=== PATIENT | female | born 1990 | race Two or more races ===

== ENCOUNTER 2018-04-18 12:16 | Inpatient (IN) | payer OTHER ==
[2018-04-19] MEDS: PRENATAL VITAMIN PO (08:37)
[2018-04-19 18:33] LABS: ADD MAN DIFF? NO
[2018-04-19 18:35] LABS: BASOPHILS % 0.2 % (0.0-2.0); EOSINOPHILS # 0.1 10^3/ul (0.0-0.5); EOSINOPHILS % 1.2 % (0.0-7.0); HEMATOCRIT 34.6 % (37.0-47.0); HEMOGLOBIN 11.5 g/dl (12.0-16.0); LYMPHOCYTES # 1.6 10^3/ul (0.8-2.9); LYMPHOCYTES % 15.9 % (15.0-51.0); MEAN CORPUSCULAR HEMOGLOBIN 29.6 pg (29.0-33.0); MEAN CORPUSCULAR HGB CONC 33.2 g/dl (32.0-37.0); MEAN CORPUSCULAR VOLUME 89.2 fl (82.0-101.0); MEAN PLATELET VOLUME 11.9 fl (7.4-10.4); MONOCYTE # 0.6 10^3/ul (0.3-0.9); MONOCYTES % 5.5 % (0.0-11.0); NEUTROPHIL # 7.7 10^3/ul (1.6-7.5); NEUTROPHILS % 76.8 % (39.0-77.0); PLATELET COUNT 160 10^3/UL (140-415); RED BLOOD COUNT 3.88 10^6/ul (4.20-5.40); RED CELL DISTRIBUTION WIDTH 15.5 % (11.5-14.5)
[2018-04-19 18:57] LABS: ANION GAP 13 (8-16); BLOOD UREA NITROGEN 9 mg/dl (7-20); CALCIUM 9.6 mg/dl (8.4-10.2); CARBON DIOXIDE 23 mmol/L (21-31); CHLORIDE 104 mmol/L (97-110); CREATININE 0.47 mg/dl (0.44-1.00); GLUCOSE 102 mg/dl (70-220); POTASSIUM 3.9 mmol/L (3.5-5.1); SODIUM 136 mmol/L (135-144)
[2018-04-19 19:06] LABS: B-TYPE NATRIURETIC PEPTIDE 74 PG/ML (0-125)
[2018-04-19 19:13] LABS: TROPONIN-I < 0.010 ng/ml (0.000-0.120)
[2018-04-20 01:41] LABS: TROPONIN-I < 0.010 ng/ml (0.000-0.120)
[2018-04-20] MEDS: PRENATAL VITAMIN PO (08:39)
[2018-04-20 09:06] LABS: CHOL/HDL RATIO 3.7 RATIO; HDL CHOLESTEROL 72 mg/dl (33-83); LDL CHOLESTEROL,CALCULATED 148 mg/dl; TRIGLYCERIDES 254 mg/dl (0-149)
[2018-04-20 09:06] LABS: CHOLESTEROL 271 mg/dl (100-200)
[2018-04-20 09:11] LABS: TROPONIN-I < 0.012 ng/ml (0.000-0.120)
== END 2018-04-20 20:17 | disposition home or self-care (01) | DRG 781 ==
LOC: OBT 12:16 → L-D 12:16 → OBT 15:30 → TEL 15:09
DX: O26.893 Other specified pregnancy related conditions, third trimester (principal); R06.02 Shortness of breath; R00.2 Palpitations; I95.9 Hypotension, unspecified; E78.5 Hyperlipidemia, unspecified; Z3A.35 35 weeks gestation of pregnancy
CPT/HCPCS: 76818; 80048; 80061; 83880; 84443; 84484; 85025; 93005; 93306

== ENCOUNTER 2018-04-26 19:32 | Outpatient (CLI) | payer OTHER | END 2018-04-27 00:35 | disposition home or self-care (01) | LOC: OBT 19:32 → L-D 19:34 → OBT 04-27 00:35 | DX: O26.893 Other specified pregnancy related conditions, third trimester (principal); Z3A.36 36 weeks gestation of pregnancy; R06.02 Shortness of breath | CPT/HCPCS: 93005 ==

== ENCOUNTER 2018-05-03 13:23 | Inpatient (IN) | payer OTHER ==
[2018-05-03 16:09] LABS: ADD UMIC YES; UR AMORPHOUS CRYSTAL FEW /HPF (NONE SEEN); UR ASCORBIC ACID 20 mg/dL (NEGATIVE); UR BILIRUBIN (Dip) NEGATIVE (NEGATIVE); UR BLOOD (Dip) NEGATIVE (NEGATIVE); UR CLARITY TURBID (CLEAR); UR COLOR YELLOW (YELLOW); UR GLUCOSE (Dip) NEGATIVE (NEGATIVE); UR KETONES (Dip) NEGATIVE (NEGATIVE); UR LEUKOCYTE ESTERASE (Dip) TRACE Leu/ul (NEGATIVE); UR NITRITE (Dip) NEGATIVE (NEGATIVE); UR RBC 1 /HPF (0-5); UR SPECIFIC GRAVITY (Dip) 1.018 (1.003-1.030); UR SQUAMOUS EPITHELIAL CELL MODERATE /HPF (FEW); UR TOTAL PROTEIN (Dip) NEGATIVE (NEGATIVE); UR UROBILINOGEN (Dip) NEGATIVE (NEGATIVE); UR WBC 1 /HPF (0-5)
[2018-05-03] MEDS ORDERED: NACL 0.9% 3 ML SYG IV (19:00)
[2018-05-04 01:12] LABS: TROPONIN-I < 0.012 ng/ml (0.000-0.120)
[2018-05-04 05:52] LABS: ADD MAN DIFF? NO
[2018-05-04 05:57] LABS: WHITE BLOOD COUNT 8.9 10^3/ul (4.8-10.8)
[2018-05-04 05:57] LABS: BASOPHILS % 0.2 % (0.0-2.0); EOSINOPHILS # 0.1 10^3/ul (0.0-0.5); EOSINOPHILS % 1.5 % (0.0-7.0); HEMATOCRIT 32.5 % (37.0-47.0); HEMOGLOBIN 10.5 g/dl (12.0-16.0); LYMPHOCYTES # 1.6 10^3/ul (0.8-2.9); LYMPHOCYTES % 18.1 % (15.0-51.0); MEAN CORPUSCULAR HEMOGLOBIN 29.3 pg (29.0-33.0); MEAN CORPUSCULAR HGB CONC 32.3 g/dl (32.0-37.0); MEAN CORPUSCULAR VOLUME 90.8 fl (82.0-101.0); MEAN PLATELET VOLUME 12.2 fl (7.4-10.4); MONOCYTE # 0.5 10^3/ul (0.3-0.9); MONOCYTES % 5.5 % (0.0-11.0); NEUTROPHIL # 6.6 10^3/ul (1.6-7.5); NEUTROPHILS % 74.1 % (39.0-77.0); PLATELET COUNT 128 10^3/UL (140-415); RED BLOOD COUNT 3.58 10^6/ul (4.20-5.40); RED CELL DISTRIBUTION WIDTH 15.7 % (11.5-14.5)
[2018-05-04 06:47] LABS: TROPONIN-I < 0.012 ng/ml (0.000-0.120)
[2018-05-04 06:50] LABS: FREE T4 (FREE THYROXINE) 0.57 ng/dl (0.79-2.35)
[2018-05-04 06:55] LABS: ANION GAP 12 (8-16); BLOOD UREA NITROGEN 9 mg/dl (7-20); CALCIUM 8.9 mg/dl (8.4-10.2); CARBON DIOXIDE 23 mmol/L (21-31); CHLORIDE 106 mmol/L (97-110); CHOL/HDL RATIO 3.9 RATIO; CHOLESTEROL 259 mg/dl (100-200); CREATININE 0.48 mg/dl (0.44-1.00); GLUCOSE 111 mg/dl (70-220); HDL CHOLESTEROL 65 mg/dl (33-83); LDL CHOLESTEROL,CALCULATED 152 mg/dl; MAGNESIUM 1.5 mg/dl (1.7-2.5); POTASSIUM 3.5 mmol/L (3.5-5.1); SODIUM 137 mmol/L (135-144); TRIGLYCERIDES 211 mg/dl (0-149)
== END 2018-05-04 20:30 | disposition home or self-care (01) | DRG 781 ==
LOC: OBT 13:23 → L-D 13:23 → OBT 16:37 → L-D 16:37 → OBT 16:43 → 6WM 16:43
DX: O26.893 Other specified pregnancy related conditions, third trimester (principal); Z3A.37 37 weeks gestation of pregnancy; R00.2 Palpitations; R06.02 Shortness of breath; I95.9 Hypotension, unspecified
CPT/HCPCS: 76818; 80048; 80061; 81001; 83735; 84439; 84443; 84484; 85025; 93005; 93306

== ENCOUNTER 2018-05-06 04:06 | Outpatient (CLI) | payer OTHER ==
[2018-05-06 06:32] LABS: ADD UMIC NO; UR ASCORBIC ACID NEGATIVE (NEGATIVE); UR BILIRUBIN (Dip) NEGATIVE (NEGATIVE); UR BLOOD (Dip) NEGATIVE (NEGATIVE); UR CLARITY CLEAR (CLEAR); UR COLOR YELLOW (YELLOW); UR GLUCOSE (Dip) NEGATIVE (NEGATIVE); UR KETONES (Dip) NEGATIVE (NEGATIVE); UR LEUKOCYTE ESTERASE (Dip) NEGATIVE Leu/ul (NEGATIVE); UR NITRITE (Dip) NEGATIVE (NEGATIVE); UR SPECIFIC GRAVITY (Dip) 1.012 (1.003-1.030); UR TOTAL PROTEIN (Dip) NEGATIVE (NEGATIVE); UR UROBILINOGEN (Dip) NEGATIVE (NEGATIVE)
== END 2018-05-06 06:10 | disposition left against medical advice (07) ==
LOC: OBT 04:06 → L-D 04:11 → OBT 06:10
DX: O26.893 Other specified pregnancy related conditions, third trimester (principal); Z3A.38 38 weeks gestation of pregnancy; R06.02 Shortness of breath
CPT/HCPCS: 81003

== ENCOUNTER 2018-05-12 14:51 | Inpatient (IN) | payer OTHER ==
[2018-05-12] MEDS ORDERED: MISOPROSTOL 200 MCG TAB PR ×2 (15:30→22:30)
[2018-05-12] MEDS ORDERED: OXYTOCIN 30 UNITS/LR 500 ML IV ×2 (15:30→22:30)
[2018-05-12] MEDS ORDERED: METHYLERGONOVINE 0.2 MG INJ IM ×2 (15:30→22:30)
[2018-05-12] MEDS ORDERED: CARBOPROST 250 MCG INJ IM ×2 (15:30→22:30)
[2018-05-12 16:00] LABS: ADD MAN DIFF? NO
[2018-05-12 16:06] LABS: WHITE BLOOD COUNT 10.6 10^3/ul (4.8-10.8)
[2018-05-12 16:06] LABS: BASOPHILS % 0.2 % (0.0-2.0); EOSINOPHILS # 0.1 10^3/ul (0.0-0.5); EOSINOPHILS % 0.7 % (0.0-7.0); HEMOGLOBIN 11.2 g/dl (12.0-16.0); LYMPHOCYTES # 1.4 10^3/ul (0.8-2.9); LYMPHOCYTES % 13.3 % (15.0-51.0); MEAN CORPUSCULAR HEMOGLOBIN 29.1 pg (29.0-33.0); MEAN CORPUSCULAR VOLUME 90.9 fl (82.0-101.0); MEAN PLATELET VOLUME 11.8 fl (7.4-10.4); MONOCYTE # 0.5 10^3/ul (0.3-0.9); MONOCYTES % 4.5 % (0.0-11.0); NEUTROPHIL # 8.6 10^3/ul (1.6-7.5); NEUTROPHILS % 80.9 % (39.0-77.0); PLATELET COUNT 155 10^3/UL (140-415); RED BLOOD COUNT 3.85 10^6/ul (4.20-5.40); RED CELL DISTRIBUTION WIDTH 15.4 % (11.5-14.5)
[2018-05-12 16:26] LABS: INR 0.93; PROTIME 12.6 Sec (11.9-14.9)
[2018-05-12 16:27] LABS: PARTIAL THROMBOPLASTIN TIME 26.4 Sec (25.0-35.0)
[2018-05-12 17:05] LABS: HEPATITIS B SURFACE ANTIGEN NEGATIVE (NEGATIVE)
[2018-05-12] MEDS: LACTATED RINGER'S 1,000 ML IV ×2 (17:53→22:04)
[2018-05-12] MEDS ORDERED: morphine SULFATE/PF (10 MG/10 ML) INJ (18:10)
[2018-05-12] MEDS ORDERED: BUPIVACAINE 0.75%/DEXT (SPINAL) 2 ML INJ (18:10)
[2018-05-12] MEDS ORDERED: ONDANSETRON 4 MG INJ (18:24)
[2018-05-12] MEDS ORDERED: DEXAMETHASONE 4 MG/ML 1 ML INJ (18:25)
[2018-05-12] MEDS ORDERED: FAMOTIDINE 20 MG INJ (18:25)
[2018-05-12] MEDS ORDERED: MIDAZOLAM 1 MG/ML 2 ML INJ (18:48)
[2018-05-12] MEDS ORDERED: HYDROmorphONE 0.5 MG/0.5 ML SYG IV ×2 (19:30)
[2018-05-12] MEDS ORDERED: NALOXONE (0.4 MG/ML) INJ IV (19:30)
[2018-05-12] MEDS ORDERED: ONDANSETRON 4 MG INJ IV (19:30)
[2018-05-12] MEDS ORDERED: ZOLPIDEM 5 MG TAB PO (19:30)
[2018-05-12] MEDS: OXYTOCIN 30 UNITS/LR 500 ML IV (20:24)
[2018-05-12] MEDS: CEFAZOLIN 2 GM/50 ML (PMX) 50 ML IV (20:39)
[2018-05-12] MEDS: KETOROLAC 30 MG INJ IV (23:04)
[2018-05-12] MEDS: LANOLIN 7 GM TUBE TOP (23:05)
[2018-05-13] MEDS: OXYTOCIN 30 UNITS/LR 500 ML IV (00:41)
[2018-05-13] MEDS: DIPHENHYDRAMINE 50 MG INJ IV (00:52)
[2018-05-13] MEDS: LACTATED RINGER'S 1,000 ML IV ×3 (05:40→22:04)
[2018-05-13] MEDS: SENNA/DOCUSATE NA (8.6MG/50MG) TAB PO ×2 (08:26→20:35)
[2018-05-13 08:55] LABS: ADD MAN DIFF? NO
[2018-05-13 09:04] LABS: BASOPHILS % 0.2 % (0.0-2.0); HEMATOCRIT 30.3 % (37.0-47.0); HEMOGLOBIN 9.9 g/dl (12.0-16.0); LYMPHOCYTES # 1.2 10^3/ul (0.8-2.9); LYMPHOCYTES % 7.5 % (15.0-51.0); MEAN CORPUSCULAR HEMOGLOBIN 29.6 pg (29.0-33.0); MEAN CORPUSCULAR HGB CONC 32.7 g/dl (32.0-37.0); MEAN CORPUSCULAR VOLUME 90.7 fl (82.0-101.0); MEAN PLATELET VOLUME 12.1 fl (7.4-10.4); MONOCYTE # 1.1 10^3/ul (0.3-0.9); MONOCYTES % 6.6 % (0.0-11.0); NEUTROPHIL # 13.9 10^3/ul (1.6-7.5); NEUTROPHILS % 85.2 % (39.0-77.0); PLATELET COUNT 163 10^3/UL (140-415); RED BLOOD COUNT 3.34 10^6/ul (4.20-5.40); RED CELL DISTRIBUTION WIDTH 15.3 % (11.5-14.5)
[2018-05-13 09:04] LABS: WHITE BLOOD COUNT 16.3 10^3/ul (4.8-10.8)
[2018-05-13] MEDS: KETOROLAC 30 MG INJ IV ×2 (10:57→16:46)
[2018-05-13] MEDS ORDERED: OXYCODONE/ACETAMINOPHEN (5/325) TAB PO (19:30)
[2018-05-13 20:02] LABS: RAPID PLASMA REAGIN NONREACTIVE (NR)
[2018-05-13] MEDS: OXYCODONE/ACETAMINOPHEN (5/325) TAB PO (20:35)
[2018-05-13] MEDS: IBUPROFEN 800 MG TAB PO (22:12)
[2018-05-14] MEDS: OXYCODONE/ACETAMINOPHEN (5/325) TAB PO ×3 (03:51→15:21)
[2018-05-14] MEDS: IBUPROFEN 800 MG TAB PO ×3 (06:03→23:08)
[2018-05-14] MEDS: LACTATED RINGER'S 1,000 ML IV ×3 (06:04→17:11)
[2018-05-14] MEDS: SENNA/DOCUSATE NA (8.6MG/50MG) TAB PO ×2 (08:41→21:02)
[2018-05-14 09:24] LABS: ADD MAN DIFF? NO
[2018-05-14 09:29] LABS: WHITE BLOOD COUNT 8.4 10^3/ul (4.8-10.8)
[2018-05-14 09:29] LABS: BASOPHILS % 0.4 % (0.0-2.0); EOSINOPHILS # 0.1 10^3/ul (0.0-0.5); EOSINOPHILS % 1.1 % (0.0-7.0); HEMATOCRIT 27.7 % (37.0-47.0); HEMOGLOBIN 8.8 g/dl (12.0-16.0); LYMPHOCYTES # 1.7 10^3/ul (0.8-2.9); LYMPHOCYTES % 19.7 % (15.0-51.0); MEAN CORPUSCULAR HEMOGLOBIN 29.3 pg (29.0-33.0); MEAN CORPUSCULAR HGB CONC 31.8 g/dl (32.0-37.0); MEAN CORPUSCULAR VOLUME 92.3 fl (82.0-101.0); MEAN PLATELET VOLUME 11.8 fl (7.4-10.4); MONOCYTE # 0.6 10^3/ul (0.3-0.9); MONOCYTES % 6.9 % (0.0-11.0); NEUTROPHILS % 71.7 % (39.0-77.0); PLATELET COUNT 135 10^3/UL (140-415); RED CELL DISTRIBUTION WIDTH 15.9 % (11.5-14.5)
[2018-05-14] MEDS: MAGNESIUM HYDROXIDE 30ML CUP PO (18:34)
[2018-05-14] MEDS: HYDROCODONE/APAP (5/325) TAB PO (21:02)
[2018-05-15] MEDS: IBUPROFEN 800 MG TAB PO ×3 (05:36→19:58)
[2018-05-15] MEDS: SENNA/DOCUSATE NA (8.6MG/50MG) TAB PO (09:22)
[2018-05-15] MEDS: DIPHTH/TET/ACEL PERTUSS (ADULT) 0.5 ML VIAL IM* (09:23)
[2018-05-15 15:17] LABS: B-TYPE NATRIURETIC PEPTIDE 109 PG/ML (0-125)
== END 2018-05-15 20:35 | disposition home or self-care (01) | DRG 766 ==
LOC: L-D 14:51 → PP1 21:56
PROVIDERS: Obstetrics & Gynecology
PROC: 10D00Z1 Extraction of Products of Conception, Low, Open Approach (ICD-10-PCS; principal; 2018-05-12 17:00)
PROC: 3E033VJ Introduction of Other Hormone into Peripheral Vein, Percutaneous Approach (ICD-10-PCS; 2018-05-12 17:00)
DX: O34.211 Maternal care for low transverse scar from previous cesarean delivery (principal); O90.81 Anemia of the puerperium; O90.89 Other complications of the puerperium, not elsewhere classified; I34.0 Nonrheumatic mitral (valve) insufficiency; Z3A.39 39 weeks gestation of pregnancy; Z37.0 Single live birth
CPT/HCPCS: 82962; 83880; 85025; 85610; 85730; 86592; 86850; 86900; 86901; 87340; 93005; 99464